=== PATIENT | male | born 1990 | race Two or more races ===

== ENCOUNTER 2025-06-15 18:21 | Emergency (ER) | payer BC, OTHER ==
[~2025-06-15] VITALS: Ht 165.1 cm; Wt 75.0 kg
--- NOTE | 2025-06-15 21:05 | DVH ---
CLINICAL INDICATION: pain / injury TECHNIQUE: 3 radiographic views of the left foot were obtained. Comparison: None FINDINGS/IMPRESSION: Normal bony alignment No fractures or dislocations. No radiopaque foreign bodies.
--- NOTE | 2025-06-15 21:14 | DVH ---
CLINICAL INDICATION: pain / injury TECHNIQUE: 4 radiographic views of the left femur were obtained. Comparison: None FINDINGS/IMPRESSION: Left femur was intact and normal alignment. There is no fracture or dislocation. No radiopaque foreign bodies.
--- NOTE | 2025-06-15 21:15 | DVH ---
CLINICAL INDICATION: pian / injury TECHNIQUE: 4 radiographic views of the left tibia and fibula were obtained. Comparison: None FINDINGS/IMPRESSION: Left tibia and fibula appear Intact normal alignment. There are no fractures or dislocations. No radiopaque foreign bodies.
--- NOTE | 2025-06-15 21:16 | DVH ---
CLINICAL INDICATION: pain / injury TECHNIQUE: 1 radiographic views of the pelvis were obtained. Comparison: None FINDINGS/IMPRESSION: Bony structures appear to be intact normal alignment. Large stool burden is noted in the visible colon.
[2025-06-15] MEDS: HYDROcodone-ACET 5/325MG TAB PO ONE (22:01)
[2025-06-15] MEDS ORDERED: GABA300T4 PO (22:05)
[2025-06-15 22:08] VITALS: PULSE 79; RESP 19; O2SAT 96
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
[2025-06-15 23:07] VITALS: BP 129/90; PULSE 72; RESP 19; TEMP 99; O2SAT 97
== END 2025-06-15 23:07 | disposition home or self-care (01) ==
LOC: ER 18:21
DX: S13.4XXA Sprain of ligaments of cervical spine, initial encounter (principal); S80.12XA Contusion of left lower leg, initial encounter; S09.90XA Unspecified injury of head, initial encounter; W19.XXXA Unspecified fall, initial encounter; Y93.89 Activity, other specified; Y92.89 Other specified places as the place of occurrence of the external cause; Y99.8 Other external cause status
CPT/HCPCS: 72170; 73590; 73630

== ENCOUNTER 2025-06-19 14:38 | Emergency (ER) | payer BC ==
[~2025-06-19] VITALS: Ht 165.1 cm; Wt 74.6 kg
[~2025-06-19 14:38] MED LIST: GABA300T4 PO
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
[2025-06-19] MEDS: KETOROLAC TROMETH 60MG/2ML VIAL IM ONE (15:30)
[2025-06-19 15:45] VITALS: BP 145/88; PULSE 86; RESP 18; TEMP 97.8
[2025-06-19] MEDS: TETANUS-DIPTH-ACEL PERTUSSIS 0.5ML SYR Tdap IM ONE (15:56)
[2025-06-19 16:00] LABS: Hematocrit 44.9 % (41.0-53.0); Hemoglobin 15.2 g/dL (13.5-17.5); Mean Corpuscular Hemoglobin 28.5 pg (28.0-32.0); Mean Corpuscular Volume 84.0 fL (80.0-100.0); Nucleated Red Blood Cells % 0.0 %
[2025-06-19 16:05] LABS: Chloride 103 mmol/L (98-107); Potassium 3.9 mmol/L (3.5-5.1); Sodium 141 mmol/L (136-145)
[2025-06-19 16:06] LABS: Anion Gap 13 (5-15); Calcium 9.2 mg/dL (8.7-10.4); Carbon Dioxide 25 mmol/L (20-31)
[2025-06-19 16:11] LABS: BUN/Creatinine Ratio 12.5 (10.0-20.0); Blood Urea Nitrogen 11 mg/dL (9-23)
[2025-06-19 16:14] LABS: Glucose 116 mg/dL (74-106)
[2025-06-19] MEDS ORDERED: HYDR-4902 PO (16:24)
[2025-06-19] MEDS ORDERED: IBUP-1455 PO (16:24)
[2025-06-19] MEDS ORDERED: BACDST PO (16:24)
[2025-06-19] MEDS: ACETAMINOPHEN 325 MG TAB PO ONE (16:36)
[2025-06-19 16:53] VITALS: O2SAT 98
== END 2025-06-19 16:42 | disposition home or self-care (01) ==
LOC: ER 14:38
DX: S80.12XA Contusion of left lower leg, initial encounter (principal); L08.9 Local infection of the skin and subcutaneous tissue, unspecified; X58.XXXA Exposure to other specified factors, initial encounter; Y93.89 Activity, other specified; Y92.89 Other specified places as the place of occurrence of the external cause; Y99.8 Other external cause status
CPT/HCPCS: 36415; 80048; 85025; 90471; 90715; 96372; 99284; J1885